=== PATIENT | female | born 1975 | race Hispanic/Latino ===

== ENCOUNTER 2018-01-08 15:41 | Emergency (ER) | payer BC ==
[2018-01-08] MEDS ORDERED: IPRATROPIUM/ALBUTEROL SULFATE 3 ML SOLUTION IH ONE (16:48)
[2018-01-08 16:59] LABS: BASOPHILS % (AUTO) 0.9 % (0.0-5.0); EOSINOPHILS % (AUTO) 6.3 % (0.0-8.0); HEMATOCRIT 35.3 % (36-48); LYMPHOCYTES % (AUTO) 23.1 % (21.0-51.0); MEAN CORPUSCULAR HEMOGLOBIN 25.8 pg (27.0-33.0); MEAN CORPUSCULAR HGB CONC 33.8 g/dL (32.0-36.0); MEAN CORPUSCULAR VOLUME 76.5 fL (79-99); MONOCYTES % (AUTO) 7.2 % (3.0-13.0); NEUTROPHILS % (AUTO) 62.5 % (40.0-77.0); PLATELET COUNT (AUTO) 395 K/uL (130-400); RED BLOOD CELL COUNT(AUTO) 4.62 MIL/uL (4.00-5.50); RED CELL DISTRIBUTION WIDTH 16.2 % (11.0-15.5); WHITE BLOOD COUNT (AUTO) 11.8 K/uL (4.8-10.8)
[2018-01-08 17:00] LABS: APPEARANCE,URINE Clear (CLEAR); BILIRUBIN,URINE Negative (NEGATIVE); COLOR,URINE Yellow (YELLOW); GLUCOSE, URINE (UA) Negative (NEGATIVE); KETONES,URINE Negative (NEGATIVE); LEUKOCYTE ESTERASE ,URINE Negative (NEGATIVE); NITRATE,URINE Negative (NEGATIVE); OCCULT BLOOD,URINE Negative (NEGATIVE); PROTEIN,URINE Negative (NEGATIVE); UROBILINOGEN,URINE 0.2 mg/dL (0.2-1.0)
[2018-01-08 17:03] LABS: HCG,QUAL RESULT NEGATIVE (NEGATIVE)
[2018-01-08 17:15] LABS: CREATININE 0.7 mg/dL (0.5-1.5); POTASSIUM 3.7 mmol/L (3.5-5.1)
[2018-01-08 17:20] LABS: ALBUMIN 3.6 g/dL (3.5-5.0); BILIRUBIN,TOTAL 0.3 mg/dL (0.2-1.0); TOTAL PROTEIN, SERUM 8.1 g/dL (6.0-8.3)
== END 2018-01-08 18:03 | disposition home or self-care (01) ==
LOC: EDH 15:41
DX: J09.X2 Influenza due to identified novel influenza A virus with other respiratory manifestations (principal); M06.9 Rheumatoid arthritis, unspecified
CPT/HCPCS: 36415; 71046; 80053; 81003; 81025; 85025; 87040; 87804; 94640

== ENCOUNTER 2018-10-24 02:52 | Emergency (ER) | payer BC ==
[2018-10-24] MEDS ORDERED: SODIUM CHLORIDE 0.9% 1000ML 1,000 ML IV ONE (03:21)
[2018-10-24 03:43] LABS: EOSINOPHILS % (AUTO) 6.8 % (0.0-8.0); LYMPHOCYTES % (AUTO) 17.1 % (21.0-51.0); MEAN CORPUSCULAR HEMOGLOBIN 25.7 pg (27.0-33.0); MEAN CORPUSCULAR HGB CONC 32.6 g/dL (32.0-36.0); MEAN CORPUSCULAR VOLUME 78.9 fL (79-99); MONOCYTES % (AUTO) 9.3 % (3.0-13.0); NEUTROPHILS % (AUTO) 65.8 % (40.0-77.0); NUCLEATED RED BLOOD CELLS 0.2 % (0.0-0.19); PLATELET COUNT (AUTO) 295 K/uL (130-400); RED BLOOD CELL COUNT(AUTO) 4.94 MIL/uL (4.00-5.50); WHITE BLOOD COUNT (AUTO) 8.4 K/uL (4.8-10.8)
[2018-10-24 03:47] LABS: CREATININE 0.7 mg/dL (0.5-1.5); POTASSIUM 3.7 mmol/L (3.5-5.1)
[2018-10-24 03:52] LABS: ALBUMIN 3.6 g/dL (3.5-5.0); BILIRUBIN,TOTAL 0.3 mg/dL (0.2-1.0); TOTAL PROTEIN, SERUM 7.6 g/dL (6.0-8.3)
[2018-10-24 04:10] LABS: APPEARANCE,URINE Clear (CLEAR); BILIRUBIN,URINE Negative (NEGATIVE); COLOR,URINE Yellow (YELLOW); GLUCOSE, URINE (UA) Negative (NEGATIVE); KETONES,URINE 40 mg/dL (NEGATIVE); LEUKOCYTE ESTERASE ,URINE Negative (NEGATIVE); NITRATE,URINE Negative (NEGATIVE); OCCULT BLOOD,URINE Negative (NEGATIVE); PH,URINE 7.5 (5.0-8.0); PROTEIN,URINE Negative (NEGATIVE)
== END 2018-10-24 04:35 | disposition home or self-care (01) ==
LOC: EDH 02:52
DX: R55 Syncope and collapse (principal); M06.9 Rheumatoid arthritis, unspecified; Z88.8 Allergy status to other drugs, medicaments and biological substances
CPT/HCPCS: 36415; 80053; 81003; 83690; 84484; 85025; 93005; 96360; 99285; J7030

== ENCOUNTER 2019-10-04 07:06 | Day surgery (SDC) | payer BC ==
[2019-10-01 17:10] VITALS: BP 149/83
[2019-10-01 17:10] LABS: BASOPHILS % (AUTO) 0.7 % (0.0-5.0); EOSINOPHILS % (AUTO) 3.3 % (0.0-8.0); HEMATOCRIT 36.7 % (36-48); LYMPHOCYTES % (AUTO) 24.8 % (21.0-51.0); MEAN CORPUSCULAR HEMOGLOBIN 20.8 pg (27.0-33.0); MEAN CORPUSCULAR HGB CONC 28.9 g/dL (32.0-36.0); NEUTROPHILS % (AUTO) 64.6 % (40.0-77.0); PLATELET COUNT (AUTO) 453 K/uL (130-400); RED CELL DISTRIBUTION WIDTH 18.9 % (11.0-15.5); WHITE BLOOD COUNT (AUTO) 10.3 K/uL (4.8-10.8)
[~2019-10-04] VITALS: Ht 156.2 cm; Wt 91.4 kg
[2019-10-04] VITALS (11 sets, daily range): BP systolic 119–145; BP diastolic 56–89
[~2019-10-04 07:06] MED LIST: ALBU8.5H8 IH; ALBUTEROL NEBULIZER IH; HYDR200T82 PO; ZYRTEC D PO
[2019-10-04] MEDS ORDERED: LACTATED RINGERS 1000ML 1,000 ML IV ONE (07:09)
[2019-10-04] MEDS ORDERED: CEFAZOLIN SODIUM 1 GM VIAL ONE (07:10)
[2019-10-04] MEDS ORDERED: LACTATED RINGERS 1000ML 1,000 ML IV SCH (07:15)
[2019-10-04] MEDS ORDERED: CALDOLOR 800MG+NS 250ML 250 ML IV SCH (07:15)
[2019-10-04] MEDS: CEFAZOLIN SODIUM 1 GM VIAL IVP SCH ×2 (07:15→08:40)
[2019-10-04] MEDS ORDERED: SUCCINYLCHOLINE 200MG/10ML SYR ONE (07:57)
[2019-10-04] MEDS ORDERED: MIDAZOLAM HCL 1 MG/ML 2ML VIAL ONE (07:57)
[2019-10-04] MEDS ORDERED: LIDOCAINE PF 2% 5ML ABBOJECT ONE (07:57)
[2019-10-04] MEDS ORDERED: GLYCOPYRROLATE 1 MG/5 ML SYRINGE ONE (07:57)
[2019-10-04] MEDS ORDERED: ONDANSETRON HCL 4 MG/2 ML VIAL ONE ×2 (07:57→09:28)
[2019-10-04] MEDS ORDERED: DEXAMETHASONE SOD PHOSPHATE 10MG/ML 1ML VIAL ONE (07:57)
[2019-10-04] MEDS ORDERED: ROCURONIUM 10MG/1ML SYR 10 MG/ML ML ONE (07:58)
[2019-10-04] MEDS ORDERED: PROPOFOL 10 MG/ML 20ML VIAL IV ONE (07:58)
[2019-10-04] MEDS ORDERED: FENTANYL CITRATE PF 50 MCG/1 ML 2ML VIAL ONE ×2 (07:58→08:41)
[2019-10-04] MEDS ORDERED: NEOSTIGMINE 5MG/5ML SYR IV ONE (07:58)
[2019-10-04] MEDS ORDERED: LIDOCAINE HCL 4% LTA SOL 4 ML VIAL ONE (08:47)
[2019-10-04] MEDS ORDERED: MEPERIDINE-PF 25 MG/ML SYG ONE ×2 (09:15→09:25)
[2019-10-04] MEDS ORDERED: METOCLOPRAMIDE 10 MG/2 ML VIAL ONE (09:28)
== END 2019-10-04 10:30 | disposition home or self-care (01) ==
LOC: DAH 07:06
PROVIDERS: ATTEND Obstetrics & Gynecology
DX: N92.0 Excessive and frequent menstruation with regular cycle (principal); M06.9 Rheumatoid arthritis, unspecified; J45.909 Unspecified asthma, uncomplicated; E66.9 Obesity, unspecified
CPT/HCPCS: 36415; 58563; 84703; 85025; 86850; 86900; 86901; 88305; A4215; A4221; A4222; A4223; A4351; A4355; A4663; A6260; J0330; J0690; J1100; J1741; J2001; J2175 ×2; J2250; J2405 ×2; J2704; J2710; J2765; J3010 ×2; J3490; J7030 ×2; J7120

== ENCOUNTER 2021-11-20 15:19 | Emergency (ER) | payer BC ==
[~2021-11-20] VITALS: Ht 157.5 cm; Wt 90.7 kg
[2021-11-20 15:53] LABS: MEAN CORPUSCULAR HEMOGLOBIN 24.4 pg (27.0-33.0); MEAN CORPUSCULAR HGB CONC 31.2 g/dL (32.0-36.0); MEAN CORPUSCULAR VOLUME 78.2 fL (79-99); RED BLOOD CELL COUNT(AUTO) 5.37 MIL/uL (4.00-5.50); RED CELL DISTRIBUTION WIDTH 15.1 % (11.0-15.5); WHITE BLOOD COUNT (AUTO) 5.9 K/uL (4.8-10.8)
[2021-11-20 15:54] LABS: BASOPHILS % (AUTO) 0.3 % (0.0-5.0); EOSINOPHILS % (AUTO) 2.4 % (0.0-8.0); LYMPHOCYTES % (AUTO) 28.5 % (21.0-51.0); MONOCYTES % (AUTO) 9.8 % (3.0-13.0); NEUTROPHILS % (AUTO) 58.3 % (40.0-77.0); PLATELET COUNT (AUTO) 360 K/uL (130-400)
[2021-11-20 16:01] LABS: CREATININE 0.6 mg/dL (0.5-1.5); POTASSIUM 3.4 mmol/L (3.5-5.1)
[2021-11-20 16:06] LABS: ALBUMIN 3.7 g/dL (3.5-5.0); BILIRUBIN,TOTAL 0.3 mg/dL (0.2-1.0)
[2021-11-20] MEDS ORDERED: ALBUTEROL INHALER 90MCG/INH IH PRN (17:30)
[2021-11-20] MEDS ORDERED: DEXAMETHASONE 4 MG TAB PO SCH (17:30)
[2021-11-20] MEDS ORDERED: ACETAMINOPHEN WITH CODEINE 1 TAB TAB PO ONE (17:30)
[2021-11-20 17:34] VITALS: BP 128/77
[2021-11-20] MEDS ORDERED: HYDR-3421 PO (17:44)
[2021-11-20] MEDS ORDERED: NIRM1TAB PO (17:44)
[2021-11-20] MEDS ORDERED: D-ME1POW16 PO (17:44)
[2021-11-20] MEDS ORDERED: PRED20TA3 PO (17:44)
[2021-11-29] MEDS ORDERED: FLUT1BLS IH (10:49)
[2021-11-29] MEDS ORDERED: TIOT4MIS2 IH (10:49)
[2021-11-29] MEDS ORDERED: BUDE0.5A3 IH (10:49)
[2021-11-29] MEDS ORDERED: IPRA3AMP24 IH (10:49)
[2021-11-29] MEDS ORDERED: PRED20TA3 PO (10:49)
[2021-11-29] MEDS ORDERED: MONT-39 PO (11:29)
[2021-11-29] MEDS ORDERED: CETI10TA57 PO (11:29)
== END 2021-11-20 18:12 | disposition home or self-care (01) ==
LOC: EDH 15:19
DX: U07.1 COVID-19 (principal); J06.9 Acute upper respiratory infection, unspecified; J45.909 Unspecified asthma, uncomplicated; M19.90 Unspecified osteoarthritis, unspecified site; Z79.52 Long term (current) use of systemic steroids; E66.9 Obesity, unspecified; Z68.36 Body mass index [BMI] 36.0-36.9, adult
CPT/HCPCS: 36415; 71045; 80053; 85025; 96372; 99283; J8540

== ENCOUNTER → 2022-04-21 | Outpatient (CLI) | payer BC ==
[~2022-04-21] MED LIST changes: -ALBU8.5H8 IH; -ALBUTEROL NEBULIZER IH; +BUDE0.5A3 IH; +CETI10TA57 PO; +FLUT1BLS IH; +IPRA3AMP24 IH; +MONT-39 PO; +PRED20TA3 PO; +TIOT4MIS2 IH; -ZYRTEC D PO
== END | disposition home or self-care (01) ==
LOC: SHCH 11:21
PROVIDERS: ATTEND Internal Medicine Cardiovascular Disease
DX: R00.2 Palpitations (principal); I10 Essential (primary) hypertension; E66.01 Morbid (severe) obesity due to excess calories; J45.909 Unspecified asthma, uncomplicated; I87.2 Venous insufficiency (chronic) (peripheral); M06.9 Rheumatoid arthritis, unspecified
CPT/HCPCS: 93306

== ENCOUNTER → 2022-05-18 | Outpatient (CLI) | payer BC | END | disposition home or self-care (01) | LOC: SHCH 09:52 | PROVIDERS: ATTEND Internal Medicine Cardiovascular Disease | DX: I87.2 Venous insufficiency (chronic) (peripheral) (principal) | CPT/HCPCS: 93970 ==

== ENCOUNTER 2023-01-22 23:16 | Emergency (ER) | payer BC ==
[~2023-01-22] VITALS: Ht 157.5 cm; Wt 90.7 kg
[2023-01-22 23:53] LABS: BASOPHILS % (AUTO) 0.7 % (0.0-5.0); EOSINOPHILS % (AUTO) 5.5 % (0.0-8.0); HEMATOCRIT 39.4 % (36-48); LYMPHOCYTES % (AUTO) 26.6 % (21.0-51.0); MEAN CORPUSCULAR HEMOGLOBIN 24.7 pg (27.0-33.0); MEAN CORPUSCULAR HGB CONC 31.7 g/dL (32.0-36.0); MEAN CORPUSCULAR VOLUME 77.7 fL (79-99); MONOCYTES % (AUTO) 6.3 % (3.0-13.0); NEUTROPHILS % (AUTO) 60.2 % (40.0-77.0); PLATELET COUNT (AUTO) 402 K/uL (130-400); RED BLOOD CELL COUNT(AUTO) 5.07 MIL/uL (4.00-5.50); RED CELL DISTRIBUTION WIDTH 15.6 % (11.0-15.5); WHITE BLOOD COUNT (AUTO) 10.4 K/uL (4.8-10.8)
[2023-01-23 00:10] LABS: APPEARANCE,URINE CLEAR (CLEAR); BILIRUBIN,URINE NEGATIVE (NEGATIVE); COLOR,URINE LIGHT-YELLOW (YELLOW); GLUCOSE, URINE (UA) NEGATIVE (NEGATIVE); KETONES,URINE NEGATIVE (NEGATIVE); LEUKOCYTE ESTERASE ,URINE NEGATIVE Leu/uL (NEGATIVE); NITRATE,URINE NEGATIVE (NEGATIVE); OCCULT BLOOD,URINE NEGATIVE (NEGATIVE); PH,URINE 6.5 (5.0-8.0); PROTEIN,URINE NEGATIVE (NEGATIVE); UROBILINOGEN,URINE 0.2 mg/dL (0.2-1.0)
[2023-01-23 00:12] LABS: CREATININE 0.8 mg/dL (0.5-1.5); POTASSIUM 3.9 mmol/L (3.5-5.1)
[2023-01-23 00:17] LABS: ALBUMIN 3.8 g/dL (3.5-5.0); TOTAL PROTEIN, SERUM 7.9 g/dL (6.0-8.3)
[2023-01-23] MEDS ORDERED: HYOS-14 PO (06:13)
[2023-01-23 06:45] VITALS: BP 158/79
== END 2023-01-23 07:06 | disposition home or self-care (01) ==
LOC: EDH 23:16
DX: R10.30 Lower abdominal pain, unspecified (principal); J45.909 Unspecified asthma, uncomplicated; M19.90 Unspecified osteoarthritis, unspecified site; Z79.899 Other long term (current) drug therapy; Z88.8 Allergy status to other drugs, medicaments and biological substances
CPT/HCPCS: 36415; 74176; 80053; 81003; 81025; 82550; 83690; 84484; 85025; 93005

== ENCOUNTER 2023-05-18 19:19 | Emergency (ER) | payer BC ==
[~2023-05-18] VITALS: Ht 157.5 cm; Wt 83.0 kg
[~2023-05-18 19:19] MED LIST changes: +HYOS-14 PO
[2023-05-18 19:39] VITALS: BP 146/87; PULSE 91; RESP 18
== END 2023-05-18 22:46 | disposition home or self-care (01) ==
LOC: EDH 19:19
DX: R42 Dizziness and giddiness (principal); I10 Essential (primary) hypertension; M06.9 Rheumatoid arthritis, unspecified; Z88.8 Allergy status to other drugs, medicaments and biological substances; Z79.899 Other long term (current) drug therapy

== ENCOUNTER 2024-07-26 21:11 | Emergency (ER) | payer BC ==
[~2024-07-26] VITALS: Ht 157.5 cm; Wt 77.1 kg
[~2024-07-26 21:11] MED LIST changes: +IBUP-2077 PO
[2024-07-26 21:47] LABS: BASOPHILS # (AUTO) 0.06 K/uL (0.00-0.20); BASOPHILS % (AUTO) 0.5 % (0.0-5.0); EOSINOPHILS # (AUTO) 0.24 K/uL (0.00-0.70); EOSINOPHILS % (AUTO) 1.9 % (0.0-8.0); HEMATOCRIT 35.3 % (36-48); IMMATURE GRANULOCYTE ABSOLUTE 0.09 K/uL (0-1); LYMPHOCYTES # (AUTO) 2.1 K/uL (1.0-4.8); LYMPHOCYTES % (AUTO) 16.4 % (21.0-51.0); MEAN CORPUSCULAR HEMOGLOBIN 25.7 pg (27.0-33.0); MEAN CORPUSCULAR VOLUME 80.4 fL (79-99); MONOCYTES # (AUTO) 0.9 K/uL (0.1-1.0); MONOCYTES % (AUTO) 6.9 % (3.0-13.0); NEUTROPHILS # (AUTO) 9.2 K/uL (1.8-7.7); NEUTROPHILS % (AUTO) 73.6 % (40.0-77.0); PLATELET COUNT (AUTO) 453 K/uL (130-400); RED BLOOD CELL COUNT(AUTO) 4.39 MIL/uL (4.00-5.50); RED CELL DISTRIBUTION WIDTH 14.6 % (11.0-15.5); WHITE BLOOD COUNT (AUTO) 12.5 K/uL (4.8-10.8)
[2024-07-26 21:57] LABS: CREATININE 0.7 mg/dL (0.5-1.0); POTASSIUM 3.7 mmol/L (3.5-5.1)
[2024-07-26 22:23] LABS: APPEARANCE,URINE CLOUDY (CLEAR); BILIRUBIN,URINE NEGATIVE (NEGATIVE); COLOR,URINE COLORLESS (YELLOW); GLUCOSE, URINE (UA) NEGATIVE (NEGATIVE); KETONES,URINE NEGATIVE (NEGATIVE); LEUKOCYTE ESTERASE ,URINE 250 Leu/uL (NEGATIVE); NITRATE,URINE NEGATIVE (NEGATIVE); OCCULT BLOOD,URINE NEGATIVE (NEGATIVE); PH,URINE 5.5 (5.0-8.0); PROTEIN,URINE NEGATIVE (NEGATIVE); UROBILINOGEN,URINE 0.2 mg/dL (0.2-1.0)
[2024-07-26 22:26] LABS: ADD UA MICROSCOPIC YES
[2024-07-26 22:40] LABS: AMPHET/METH SCREEN,URINE NEGATIVE (NEGATIVE); BARBITURATE SCREEN, URINE NEGATIVE (NEGATIVE); BENZODIAZEPINES SCREEN,URINE NEGATIVE (NEGATIVE); CANNABINOID SCREEN,URINE NEGATIVE (NEGATIVE); COCAINE SCREEN,URINE NEGATIVE (NEGATIVE); OPIATE SCREEN,URINE NEGATIVE (NEGATIVE); PHENCYCLIDINE SCREEN,URINE NEGATIVE (NEGATIVE)
[2024-07-26 22:43] LABS: BACTERIA,URINE RARE /HPF (None Seen); MUCUS,URINE RARE LPF (None Seen); SQUAMOUS EPITHELIAL CELL,UR MOD /HPF (0-2)
[2024-07-26 22:56] VITALS: BP 130/66; PULSE 96; RESP 18; TEMP 98.5; O2SAT 97
== END 2024-07-26 22:57 | disposition home or self-care (01) ==
LOC: EDH 21:11
DX: R42 Dizziness and giddiness (principal); I10 Essential (primary) hypertension; F41.9 Anxiety disorder, unspecified; J45.909 Unspecified asthma, uncomplicated; G62.9 Polyneuropathy, unspecified; M06.9 Rheumatoid arthritis, unspecified; Z79.899 Other long term (current) drug therapy
CPT/HCPCS: 36415; 70450; 80048; 80305; 81001; 84484; 85025; 87086

== ENCOUNTER 2024-09-28 21:14 | Emergency (ER) | payer BC ==
[~2024-09-28] VITALS: Ht 157.5 cm; Wt 77.1 kg
[2024-09-28 21:27] VITALS: TEMP 98.1
--- NOTE | 2024-09-28 21:30 | ERN ---
ED Note History of Present Illness Stated Complaint: HTN, NAUSEA, HEADACHE Chief Complaint: Hypertension Time Seen by MD: 21:21 Dictation: This is a 48-year-old female who presented to the emergency room with complaints of nausea and headache and she also reports her blood pressure was high and hence she came in for evaluation she had similar presentation in the past at which time she was very anxious about possibly getting a stroke with a high blood pressure and hence had presented to the ED at that time. No history of any blurred vision diplopia motor weakness or seizure activity no slurred speech . Temperature 97.9 pulse 103 respirations 16 blood pressure 171/98 with a pulse oximetry of 97% Chronic medical problems include hypertension, rheumatoid arthritis, neuropathy of unclear etiology, anxiety and asthma Allergies: Coded Allergies: certolizumab pegol (Unverified Allergy, Unknown, 07/08/19) Home Meds Active Scripts Ibuprofen (Ibuprofen 800 mg Tab) 800 Mg Tab, 800 MG PO Q8H PRN for fever or pain, #30 TAB 0 Refills Prov:SELAM GARZA 06/25/24 Hyoscyamine Sulfate (Hyoscyamine Sulfate) 0.125 Mg Tab.rapdis, 0.125 MG PO TID PRN for PAIN, #30 TAB 0 Refills Prov:BECKIE MCDANIEL MD 01/23/23 Montelukast Sodium (Montelukast Sodium) 10 Mg Tablet, 10 MG PO DAILY for 30 Days, #30 TAB 1 Refill Prov:GARY HERNÁNDEZ Jr., MD 11/29/21 Cetirizine HCl (Cetirizine HCl) 10 Mg Tablet, 10 MG PO HS for 30 Days, #30 TAB 3 Refills Prov:GARY HERNÁNDEZ Jr., MD 11/29/21 Prednisone (Prednisone) 20 Mg Tablet, 40 MG PO DAILY, #5 TAB take 1st then taper to 20mg dose Prov:KAEL NAYLOR 11/29/21 Prednisone (Prednisone) 20 Mg Tablet, 20 MG PO DAILY for 5 Days, #5 TAB Prov:KAEL NAYLOR 11/29/21 Fluticasone/Vilanterol (Breo Ellipta 200-25 Mcg INH) 1 Each Blst.w.dev, 1 EACH IH DAILY for start when starting spiriva for 30 Days, #1 INHALER Prov:KAEL NAYLORORION 11/29/21 Tiotropium [place] (Spiriva Respimat) 4 Gm Mist.inhal, 4 GM IH DAILY for 30 Days, #1 INHALER start 2 inhalations once daily regimen after 7 days more of nebulizer therapy Prov:KAEL NAYLORORION 11/29/21 Budesonide (Budesonide) 0.5 Mg/2 Ml Ampul.neb, 0.5 MG IH BID for 15 Days, #30 AMP Prov:KAEL NAYLORORION 11/29/21 Ipratropium/Albuterol Sulfate (Iprat-Albut 0.5-3(2.5) mg/3 ml) 3 Ml Ampul.neb, 3 ML IH Q6HPRN PRN for SHORTNESS OF BREATH for 15 Days, #60 AMP Prov:KAEL NAYLORIrma 11/29/21 Reported Medications Hydroxychloroquine Sulfate (Plaquenil) 200 Mg Tablet, 200 MG PO HS, TAB 10/01/19 Past Medical History Past Medical History: Anxiety, Asthma, Hypertension Additional Past Medical Hx: RA, NEUROPATHY, " DIZZINESS" DENIES PMH OF VERTIGO, PANIC ATTACKS Surgical History: Other Surgical History Other: UTERINE ABLASION Family History: Negative History: Not Applicable RN Note Reviewed/Agreed w/PFSH: Yes Review of System Dictation Constitutional: Negative for fever,chills, and weight loss Eyes: Negative for injury, pain,redness, and discharge ENT: Negative for injury,pain or swelling Cardiovascular: Negative for chest pain, palpitations, and edema Respiratory: Negative for shortness of breath, cough, and wheezing, Abdomen/GI: Negative for abdominal pain, nausea, vomiting, diarrhea, and constipation Back: Negative for injury and pain : Negative for injury, bleeding and discharge MS/Extremity: Negative for injury and deformity Skin: Negative for rash, and discoloration Neuro: Positive for headache, denies weakness, numbness, tingling, and seizure Psych: Negative for suicide ideation, homicidal ideation, and hallucinations Initial Vital Sign VS Vital Signs Date Time Temp Pulse Resp B/P (MAP) Pulse Ox O2 Delivery O2 Flow Rate FiO2 09/28/24 21:15 97.9 103 16 171/98 97 Room Air 09/28/24 21:27 0 21 Physical Exam Dictation General: awake, alert, NAD Head/Face: Normocephalic, atraumatic Eyes: PERRL, EOMI, vision at baseline ENT: oral cavity clear, TMs clear, no signs of infection Neck: Trachea midline, supple, no nuchal rigidity Cardiovascular: RRR, normal S1/S2, No MRGs, no JVD Respiratory: CTAB, no respiratory distress, No rales or wheezes Abdomen: Soft, non-tender, non-distended, normal bowel sounds, no guarding or rebound. Skin: Warm, dry, normal turgor, no rash MS/Extremity: Pulses equal, no cyanosis, neurovascular intact, FROM Neuro: COAx4, GCS 15, strength 5/5, CN 2-12 intact, normal cerebellar exam, normal gait, Psych: Normal behavior, mood, and affect normal Extremities-trace edema without any palpable cords, Homans sign is negative Results (Laboratory/Radiology) Laboratory/Radiology Laboratory Tests Test 09/28/24 21:35 White Blood Count 7.5 K/uL (4.8-10.8) Red Blood Count 4.49 MIL/uL (4.00-5.50) Hemoglobin 11.0 g/dL (12.0-16.0) L Hematocrit 35.3 % (36-48) L Mean Corpuscular Volume 78.6 fL (79-99) L Mean Corpuscular Hemoglobin 24.5 pg (27.0-33.0) L Mean Corpuscular Hemoglobin Concent 31.2 g/dL (32.0-36.0) L Red Cell Distribution Width 14.7 % (11.0-15.5) Platelet Count 527 K/uL (130-400) H Mean Platelet Volume 8.8 fL (7.5-10.5) Immature Granulocyte % (Auto) 0.4 % (0-1) Neutrophils (%) (Auto) 59.3 % (40.0-77.0) Lymphocytes (%) (Auto) 28.9 % (21.0-51.0) Monocytes (%) (Auto) 7.8 % (3.0-13.0) Eosinophils (%) (Auto) 2.7 % (0.0-8.0) Basophils (%) (Auto) 0.9 % (0.0-5.0) Neutrophils # (Auto) 4.4 K/uL (1.8-7.7) Lymphocytes # (Auto) 2.2 K/uL (1.0-4.8) Monocytes # (Auto) 0.6 K/uL (0.1-1.0) Eosinophils # (Auto) 0.20 K/uL (0.00-0.70) Basophils # (Auto) 0.07 K/uL (0.00-0.20) Absolute Immature Granulocyte (auto 0.03 K/uL (0-1) Nucleated Red Blood Cells 0.0 % (0.0-0.19) Red Blood Cell Morphology See comments Sodium Level 138 mmol/L (136-145) Potassium Level 3.8 mmol/L (3.5-5.1) Chloride Level 104 mmol/L (101-111) Carbon Dioxide Level 29 mmol/L (21-32) Blood Urea Nitrogen 9 mg/dL (7-18) Creatinine 0.6 mg/dL (0.5-1.0) Glomerular Filtration Rate Calc 110 mL/min (>90) Random Glucose 93 mg/dL (70-105) Total Calcium 9.9 mg/dL (8.5-10.1) Total Bilirubin 0.2 mg/dL (0.2-1.0) Aspartate Amino Transf (AST/SGOT) 14 U/L (10-37) Alanine Aminotransferase (ALT/SGPT) 16 U/L (12-78) Alkaline Phosphatase 97 U/L (50-136) Total Protein 7.8 g/dL (6.0-8.3) Albumin 3.1 g/dL (3.5-5.0) L Labs Reviewed?: Yes ED Course ED Course Orders Procedure Category Date Status Time Hydralazine 20mg Inj PHA 09/28/24 Complete (Apresoline 20mg In 21:30 Lorazepam 0.5 Mg PHA 09/28/24 Complete (Ativan) 21:30 Cbc With Differential LAB 09/28/24 Complete 21:31 Comprehensive LAB 09/28/24 Complete Metabolic Panel 21:31 Ondansetron Odt 4mg PHA 09/28/24 Complete Tab (Zofran 4mg Odt) 22:00 Current Medications Medications (Trade) Dose Ordered Sig/Anne Route PRN Reason Start Time Stop Time Status Last Admin Dose Admin Hydralazine HCl (APRESOLine 20MG INJ) 10 mg ONCE ONCE IM 09/28/24 21:30 09/28/24 21:33 DC Lorazepam (AtiVAN) 0.25 mg ONCE ONCE PO 09/28/24 21:30 09/28/24 21:33 DC 09/28/24 21:37 Ondansetron HCl (zoFRAN 4MG ODT) 4 mg ONCE ONCE SL 09/28/24 22:00 09/28/24 22:01 DC 09/28/24 21:36 Vital Signs Date Time Temp Pulse Resp B/P (MAP) Pulse Ox O2 Delivery O2 Flow Rate FiO2 09/28/24 22:06 81 16 137/65 97 Room Air* 0 21 09/28/24 21:27 98.1 88 16 157/82 99 Room Air* 0 21 09/28/24 21:15 97.9 103 16 171/98 97 Room Air We will perform diagnostic labs, advanced imaging and administer medications according to the patient's complaint. Once the results are available, will review and personally interpreted the labs to rule out any acute life- threatening emergency the trach require immediate intervention and treatment. I will then re-evaluate the patient after treatment and diagnostic exams have return to determine whether the patient requires any further testing, can safely be discharged home or need further admission to hospital for additional treatment and evaluation. Medical Decision Making MDM MDM: Differential diagnosis: Rationale: Tests considered and ordered secondary to shared decision making include: Previous outside records reviewed: Old ER visits. Risk of complication and/or morbidity or mortality of patient management: None Medications-Per medication reconciliation Need for hospitalization: Patient does not meet criteria for hospitalization. Need for emergency major/minor surgery: No There are no social concerns with this patient. Prescription drug management Prescriptions will include symptomatic care Patient's prior external medical records from other ER visits were reviewed by me as indicated. Prior testing and results from previous visits were reviewed. Prior tests were taken into account with medical decision making and resource utilization, independent historian/historians were used to obtain complete medical history. I independently interpreted the test that were performed, results were reviewed by me and considered findings on radiology if ordered. Medical management and examination interpretation discussions were had by me with other qualified healthcare professionals as indicated for the patient's care. Problem List Problem List: (1) Uncontrolled hypertension (2) Anxiety DX & DISP Disposition: Discharge Departure Impression: Primary Impression: Uncontrolled hypertension Additional Impression: Anxiety Condition: Stable Additional Instructions: Patient and the caregiver have been informed of all the diagnostic tests and the imaging conducted during the today's visit to the emergency room and has verbalized understanding of the results I have personally reviewed and interpreted all diagnostic exams performed here in the ER today as well as the vital signs documented by the nursing staff. The patient is now being discharged to home and should follow up with the primary care physician or the specialist as directed by the ER staff. Follow-up with primary care provider in 1 to 2 days. Take medications as directed here in the emergency room. Okay to continue home medications unless otherwise discussed during your visit in the emergency room today. Return to your nearest emergency room if symptoms worsen or if there is no improvement. Call 911 if you need immediate assistance. Take Tylenol or Motrin [id number] as needed and if no contraindications are present. Increase oral hydration. A wound culture or urine culture was ordered here in the emergency room department please follow-up with primary care provider and advise them to get repeat ports from our facility. If you had any Vj wrap/splints that were applied here, please do not remove them until you see your primary care or specialty. Extensive counseling on compliance with medications, low-salt diet and follow up with PCP Referrals: GWYN ROGEL MD (PCP) HENRIQUE BARRIOS MD Sep 28, 2024 21:30
[2024-09-28] MEDS: ondanSETRON ODT 4MG TAB SL ONE (21:36)
[2024-09-28] MEDS: LORazepam 0.5 MG TABLET PO ONE (21:37)
[2024-09-28 21:43] LABS: BASOPHILS # (AUTO) 0.07 K/uL (0.00-0.20); BASOPHILS % (AUTO) 0.9 % (0.0-5.0); EOSINOPHILS % (AUTO) 2.7 % (0.0-8.0); HEMATOCRIT 35.3 % (36-48); IMMATURE GRANULOCYTE ABSOLUTE 0.03 K/uL (0-1); LYMPHOCYTES # (AUTO) 2.2 K/uL (1.0-4.8); LYMPHOCYTES % (AUTO) 28.9 % (21.0-51.0); MEAN CORPUSCULAR HEMOGLOBIN 24.5 pg (27.0-33.0); MEAN CORPUSCULAR HGB CONC 31.2 g/dL (32.0-36.0); MEAN CORPUSCULAR VOLUME 78.6 fL (79-99); MONOCYTES # (AUTO) 0.6 K/uL (0.1-1.0); MONOCYTES % (AUTO) 7.8 % (3.0-13.0); NEUTROPHILS # (AUTO) 4.4 K/uL (1.8-7.7); NEUTROPHILS % (AUTO) 59.3 % (40.0-77.0); PLATELET COUNT (AUTO) 527 K/uL (130-400); RED BLOOD CELL COUNT(AUTO) 4.49 MIL/uL (4.00-5.50); RED CELL DISTRIBUTION WIDTH 14.7 % (11.0-15.5); WHITE BLOOD COUNT (AUTO) 7.5 K/uL (4.8-10.8)
[2024-09-28 21:59] LABS: CREATININE 0.6 mg/dL (0.5-1.0); POTASSIUM 3.8 mmol/L (3.5-5.1)
[2024-09-28 22:04] LABS: ALBUMIN 3.1 g/dL (3.5-5.0); BILIRUBIN,TOTAL 0.2 mg/dL (0.2-1.0); TOTAL PROTEIN, SERUM 7.8 g/dL (6.0-8.3)
[2024-09-28 22:06] VITALS: BP 137/65; PULSE 81; RESP 16; O2SAT 97
[2024-09-28] MEDS: hydrALAZine 20MG/ML VIAL IM ONE (22:07)
== END 2024-09-28 23:06 | disposition home or self-care (01) ==
LOC: EDH 21:14
DX: I10 Essential (primary) hypertension (principal); F41.9 Anxiety disorder, unspecified; J45.909 Unspecified asthma, uncomplicated; Z79.51 Long term (current) use of inhaled steroids; Z79.52 Long term (current) use of systemic steroids; Z79.899 Other long term (current) drug therapy; Z88.8 Allergy status to other drugs, medicaments and biological substances; Z98.890 Other specified postprocedural states
CPT/HCPCS: 36415; 80053; 85025; 99283

== ENCOUNTER 2024-12-14 23:17 | Emergency (ER) | payer BC ==
[~2024-12-14] VITALS: Ht 157.5 cm; Wt 77.1 kg
--- NOTE | 2024-12-14 23:26 | NUR ---
REPORT TO [facility]
[2024-12-15 00:08] LABS: APPEARANCE,URINE CLEAR (CLEAR); BILIRUBIN,URINE NEGATIVE (NEGATIVE); COLOR,URINE YELLOW (YELLOW); GLUCOSE, URINE (UA) NEGATIVE (NEGATIVE); KETONES,URINE NEGATIVE (NEGATIVE); LEUKOCYTE ESTERASE ,URINE NEGATIVE Leu/uL (NEGATIVE); NITRATE,URINE NEGATIVE (NEGATIVE); OCCULT BLOOD,URINE NEGATIVE (NEGATIVE); PH,URINE 6.5 (5.0-8.0); PROTEIN,URINE NEGATIVE (NEGATIVE); UROBILINOGEN,URINE 0.2 mg/dL (0.2-1.0)
[2024-12-15 00:09] LABS: ADD UA MICROSCOPIC NO
[2024-12-15 00:46] LABS: CARBON DIOXIDE 30 mmol/L (21-32); CHLORIDE 102 mmol/L (101-111); CREATININE 0.6 mg/dL (0.5-1.0); GLOMERULAR FILTR. RATE CALC 109 mL/min (>90); GLUCOSE,RANDOM 110 mg/dL (70-105); POTASSIUM 4.5 mmol/L (3.5-5.1); SODIUM SERUM 138 mmol/L (136-145); UREA NITROGEN, BLOOD 15 mg/dL (7-18)
[2024-12-15 00:48] LABS: BASOPHILS # (AUTO) 0.06 K/uL (0.00-0.20); BASOPHILS % (AUTO) 0.6 % (0.0-5.0); EOSINOPHILS # (AUTO) 0.11 K/uL (0.00-0.70); HEMATOCRIT 37.3 % (36-48); IMMATURE GRANULOCYTE ABSOLUTE 0.06 K/uL (0-1); LYMPHOCYTES # (AUTO) 2.7 K/uL (1.0-4.8); MEAN CORPUSCULAR HEMOGLOBIN 23.5 pg (27.0-33.0); MEAN CORPUSCULAR HGB CONC 30.6 g/dL (32.0-36.0); MEAN CORPUSCULAR VOLUME 76.9 fL (79-99); MONOCYTES # (AUTO) 0.6 K/uL (0.1-1.0); MONOCYTES % (AUTO) 5.6 % (3.0-13.0); NEUTROPHILS # (AUTO) 7.2 K/uL (1.8-7.7); NEUTROPHILS % (AUTO) 67.2 % (40.0-77.0); PLATELET COUNT (AUTO) 593 K/uL (130-400); RED BLOOD CELL COUNT(AUTO) 4.85 MIL/uL (4.00-5.50); RED CELL DISTRIBUTION WIDTH 16.5 % (11.0-15.5); WHITE BLOOD COUNT (AUTO) 10.7 K/uL (4.8-10.8)
[2024-12-15 00:53] LABS: ALANINE AMINOTRANSFERASE 18 U/L (12-78); ALBUMIN 3.5 g/dL (3.5-5.0); ASPARTATE AMINOTRANSFERASE 23 U/L (10-37); BILIRUBIN,TOTAL 0.3 mg/dL (0.2-1.0); CREATINE KINASE, TOTAL 50 U/L (21-232); TOTAL PROTEIN, SERUM 8.3 g/dL (6.0-8.3)
--- NOTE | 2024-12-15 01:05 | ERN ---
General Chief Complaint: Multiple Complaints Stated Complaint: HYPERTENSION Time Seen by MD: 23:27 Source: patient History of Present Illness Initial Comments Patient was a 49-year-old female with prior history of hypertension and vertigo. Prior to coming to the emergency room today she experienced a sudden spike in her blood pressure and it caused what sounds like an anxiety attack where she was started experiencing pressure throbbing he independent of her neck he has been homeless tingling around her right mouth with emesis x1 and mild chest pressure. She took a single dose of clonidine 0.1 mg which brought her systolic from 195 down to 180 and her diastolic from 100 down to 90. She says that she was taking an antibiotic for a UTI right now. Timing/Duration: 1 hour Severity: severe Modifying Factors: improves with medication Associated Symptoms: chest pain, headaches, nausea/vomiting Allergies: Coded Allergies: certolizumab pegol (Unverified Allergy, Unknown, 07/08/19) Home Meds Active Scripts Ibuprofen (Ibuprofen 800 mg Tab) 800 Mg Tab, 800 MG PO Q8H PRN for fever or pain, #30 TAB 0 Refills Prov:SELAM GARZA 06/25/24 Hyoscyamine Sulfate (Hyoscyamine Sulfate) 0.125 Mg Tab.rapdis, 0.125 MG PO TID PRN for PAIN, #30 TAB 0 Refills Prov:BECKIE MCDANIEL MD 01/23/23 Montelukast Sodium (Montelukast Sodium) 10 Mg Tablet, 10 MG PO DAILY for 30 Days, #30 TAB 1 Refill Prov:GARY HERNÁNDEZ Jr., MD 11/29/21 Cetirizine HCl (Cetirizine HCl) 10 Mg Tablet, 10 MG PO HS for 30 Days, #30 TAB 3 Refills Prov:GARY HERNÁNDEZ Jr., MD 11/29/21 Prednisone (Prednisone) 20 Mg Tablet, 40 MG PO DAILY, #5 TAB take 1st then taper to 20mg dose Prov:KAEL NAYLOR 11/29/21 Prednisone (Prednisone) 20 Mg Tablet, 20 MG PO DAILY for 5 Days, #5 TAB Prov:KAEL NAYLOR 11/29/21 Fluticasone/Vilanterol (Breo Ellipta 200-25 Mcg INH) 1 Each Blst.w.dev, 1 EACH IH DAILY for start when starting spiriva for 30 Days, #1 INHALER Prov:KAEL NAYLORTICOP 11/29/21 Tiotropium [place] (Spiriva Respimat) 4 Gm Mist.inhal, 4 GM IH DAILY for 30 Days, #1 INHALER start 2 inhalations once daily regimen after 7 days more of nebulizer therapy Prov:KAEL NAYLORTICOP 11/29/21 Budesonide (Budesonide) 0.5 Mg/2 Ml Ampul.neb, 0.5 MG IH BID for 15 Days, #30 AMP Prov:KAEL NAYLORTICOP 11/29/21 Ipratropium/Albuterol Sulfate (Iprat-Albut 0.5-3(2.5) mg/3 ml) 3 Ml Ampul.neb, 3 ML IH Q6HPRN PRN for SHORTNESS OF BREATH for 15 Days, #60 AMP Prov:KAEL NAYLORORION 11/29/21 Reported Medications Hydroxychloroquine Sulfate (Plaquenil) 200 Mg Tablet, 200 MG PO HS, TAB 10/01/19 Past Medical History Past Medical History: Anxiety, Asthma, Hypertension Medical History Other: RA, NEUROPATHY, " DIZZINESS" DENIES PMH OF VERTIGO, PANIC ATTACKS Past Surgical History: Other Surgical History Other: UTERINE ABLASION Family History Family History: Negative Female( History) History: Not Applicable Gastrointestinal/Abdominal: (+) nausea, (+) vomiting Musculoskeletal: (+) Neck pain Neuro: (+) vertigo Physical Exam Physical Exam Dictation The patient's blood pressure has dropped down to 164 systolic. She was much calmer laughing and smiling. And has no complaints of vertigo or neck pain. Orientation: (+) oriented x 3 Head/Face Trauma: No Eye: bilateral eye normal inspection, bilateral eye PERRL, bilateral eye EOMI Ear, Nose, Throat: (+) hearing grossly normal, (+) normal ENT inspection, (+) moist mucous membraine Neck: (+) normal inspection, (+) supple, (+) no JVD Respiratory: (+) chest non-tender, (+) lungs clear, (+) well ventilated Heart: (+) regular Vascular: (+) no edema, (+) normal peripheral pulse, (+) no JVD Gastrointestinal: (+) soft, (+) non-tender, (+) bowel sound present Skin: (+) normal color, (+) warm/dry Results Laboratory and Microbiology Lab and Micro Result Laboratory Tests Test 12/14/24 23:23 12/15/24 00:23 12/15/24 00:59 Urine Color YELLOW (YELLOW) Urine Appearance CLEAR (CLEAR) Urine pH 6.5 (5.0-8.0) Urine Specific [place] 1.004 (1.001-1.031) Urine Protein NEGATIVE mg/dL (NEGATIVE) Urine Glucose (UA) NEGATIVE mg/dL (NEGATIVE) Urine Ketones NEGATIVE mg/dL (NEGATIVE) Urine Occult Blood NEGATIVE (NEGATIVE) Urine Nitrate NEGATIVE (NEGATIVE) Urine Bilirubin NEGATIVE mg/dL (NEGATIVE) Urine Urobilinogen 0.2 mg/dL (0.2-1.0) Urine Leukocyte Esterase NEGATIVE [place]/uL White Blood Count 10.7 K/uL (4.8-10.8) Red Blood Count 4.85 MIL/uL (4.00-5.50) Hemoglobin 11.4 g/dL (12.0-16.0) L Hematocrit 37.3 % (36-48) Mean Corpuscular Volume 76.9 fL (79-99) L Mean Corpuscular Hemoglobin 23.5 pg (27.0-33.0) L Mean Corpuscular Hemoglobin Concent 30.6 g/dL (32.0-36.0) L Red Cell Distribution Width 16.5 % (11.0-15.5) H Platelet Count 593 K/uL (130-400) H Mean Platelet Volume 9.4 fL (7.5-10.5) Immature Granulocyte % (Auto) 0.6 % (0-1) Neutrophils (%) (Auto) 67.2 % (40.0-77.0) Lymphocytes (%) (Auto) 25.0 % (21.0-51.0) Monocytes (%) (Auto) 5.6 % (3.0-13.0) Eosinophils (%) (Auto) 1.0 % (0.0-8.0) Basophils (%) (Auto) 0.6 % (0.0-5.0) Neutrophils # (Auto) 7.2 K/uL (1.8-7.7) Lymphocytes # (Auto) 2.7 K/uL (1.0-4.8) Monocytes # (Auto) 0.6 K/uL (0.1-1.0) Eosinophils # (Auto) 0.11 K/uL (0.00-0.70) Basophils # (Auto) 0.06 K/uL (0.00-0.20) Absolute Immature Granulocyte (auto 0.06 K/uL (0-1) Nucleated Red Blood Cells 0.0 % (0.0-0.19) Red Blood Cell Morphology See comments D-Dimer Quantitative (PE/DVT) 3786 ng/mL (0-500) *H Sodium Level 138 mmol/L (136-145) Potassium Level 4.5 mmol/L (3.5-5.1) Chloride Level 102 mmol/L (101-111) Carbon Dioxide Level 30 mmol/L (21-32) Blood Urea Nitrogen 15 mg/dL (7-18) Creatinine 0.6 mg/dL (0.5-1.0) Glomerular Filtration Rate Calc 109 mL/min (>90) Random Glucose 110 mg/dL (70-105) H Total Calcium 9.8 mg/dL (8.5-10.1) Total Bilirubin 0.3 mg/dL (0.2-1.0) Aspartate Amino Transf (AST/SGOT) 23 U/L (10-37) Alanine Aminotransferase (ALT/SGPT) 18 U/L (12-78) Alkaline Phosphatase 120 U/L (50-136) Total Creatine Kinase 50 U/L (21-232) # Troponin I < 0.05 ng/mL (0.00-0.05) < 0.05 ng/mL (0.00-0.05) Troponin I High Sensitivity < 4.0 ng/L (4-50) L B-Type Natriuretic Peptide 20 pg/mL (0-100) Total Protein 8.3 g/dL (6.0-8.3) Albumin 3.5 g/dL (3.5-5.0) MDM The patient symptoms sound to me like hyperventilation syndrome being brought on by anxiety from hypertension. The patient's overall condition has improved m arkedly with the lowering of her blood pressure. She was not anxious. Given her systolic of 160 however I will give her an additional 0.1 mg of p.o. clonidine before sending her home. We also ordered a BNP as well as cardiac enzymes. Date cardiac enzymes are normal the BNP is pending. I suspect the BNP will also be normal I will double check before discharging her from the [facility] room once her blood pressure is normal. Patient's blood pressure has normalized to 120 systolic she feels fine and is re melissa for discharge. Patient states she has a history of elevated D-dimers NIH obtained one today and she still has elevated D-dimers, this is a chronic condition for her and her elevated D-dimer is no reason to keep her in the emergency room or to admit her. I am not going to wait for the BNP result. ED Course Orders Procedure Category Date Status Time Vital Signs Per CPOE 12/14/24 Transmitted Routine 23:23 B-Type Natriuretic LAB 12/14/24 Complete Peptide 23:23 Chest 1vw RAD 12/14/24 Taken 23:23 12 Lead Ekg Tracing- EKG 12/14/24 Logged Technical 23:23 Oxygen By Nc/Pulse Ox CPOE 12/14/24 Transmitted 23:23 Maintain Iv CPOE 12/14/24 Transmitted 23:23 Iv Insertion CPOE 12/14/24 Transmitted 23:23 Cardiac Monitoring CPOE 12/14/24 Transmitted 23:23 Pulse Oximetry With CPOE 12/14/24 Transmitted Vs And Prn 23:23 Cbc With Differential LAB 12/14/24 Complete 23:23 Activity: Br W/Brp CPOE 12/14/24 Transmitted With Assist 23:23 Urinalysis Profile LAB 12/14/24 Complete 23:23 Troponin Poc Order LAB 12/14/24 Complete Only 23:23 Bedside Troponin-I LAB.ER 12/14/24 In Process (Poc) 23:23 D-Dimer LAB 12/14/24 Complete 23:40 Cardiac Panel LAB 12/15/24 Complete 00:23 Comprehensive LAB 12/15/24 Complete Metabolic Panel 00:23 Clonidine Hcl 0.1 Mg PHA 12/15/24 Complete Tablet (Catapres 0. 01:00 Current Medications Medications (Trade) Dose Ordered Sig/Anne Route PRN Reason Start Time Stop Time Status Last Admin Dose Admin Clonidine HCl (CATApres 0.1 mg TAB) 0.1 mg ONCE ONCE PO 12/15/24 01:00 12/15/24 01:01 DC 12/15/24 01:13 Vital Signs Date Time Temp Pulse Resp B/P (MAP) Pulse Ox O2 Delivery O2 Flow Rate FiO2 12/15/24 01:13 80 162/85 12/15/24 00:26 99.0 96 20 167/85 98 Room Air* 0 21 12/14/24 23:19 98.1 107 20 180/96 99 DX & DISP Disposition: Discharge Departure Impression: Primary Impression: Anxiety Additional Impression: Hyperventilation syndrome Condition: Stable Referrals: GWYN ROGEL MD (PCP) LANA BRUNER MD Dec 15, 2024 01:05
[2024-12-15 01:07] LABS: B-TYPE NATRIURETIC PEPTIDE 20 pg/mL (0-100)
[2024-12-15] MEDS: cloNIDine HCL 0.1 MG TABLET PO ONE (01:13)
[2024-12-15 02:21] VITALS: BP 121/61; PULSE 82; RESP 20; TEMP 98.7; O2SAT 99
--- NOTE | 2024-12-15 04:13 | EKG ---
[facility] Test Date: 2024-12-14 Test Time: 23:56:11 Pat Name: LISA HUFFMAN Department: ED Room: Gender: F Line Decorator: [facility] : 1975 Requested By: LANA BRUNER Order Number: [id number] Reading MD: Lorraine Walton Measurements Intervals [place] Rate: 89 P: 46 [place]: 143 QRS: 39 QRSD: 89 T: 10 QT: 365 QTc: 445 Interpretive Statements Sinus rhythm Compared to ECG 06/25/2024 18:07:12 Sinus tachycardia no longer present Electronically Signed On 12-15-2024 15:37:50 [employer] by Lorraine Walton Please click the below link to view image of tracing.
--- NOTE | 2024-12-15 08:14 | HMCIMG ---
PORTABLE CHEST RADIOGRAPH INDICATION: CHEST PAIN COMPARISON: 11/28/2021 FINDINGS: Heart size is normal. The pulmonary vascularity and amol appear normal. No abnormal pulmonary parenchymal opacity or consolidation identified. No significant pleural effusion noted. No pneumothorax detected. IMPRESSION: No radiographic evidence for any acute cardiopulmonary process.
== END 2024-12-15 02:44 | disposition home or self-care (01) ==
LOC: EDH 23:17
DX: F41.9 Anxiety disorder, unspecified (principal); F45.8 Other somatoform disorders; I10 Essential (primary) hypertension; J45.909 Unspecified asthma, uncomplicated; Z79.51 Long term (current) use of inhaled steroids; Z79.52 Long term (current) use of systemic steroids; Z79.899 Other long term (current) drug therapy
CPT/HCPCS: 36415; 71045; 80053; 81003; 82550; 83880; 84484; 85025; 85378; 93005; 99284

== ENCOUNTER 2025-07-31 09:51 | Emergency (ER) | payer BC ==
[~2025-07-31] VITALS: Ht 157.5 cm; Wt 77.1 kg
[~2025-07-31 09:51] MED LIST changes: +HYD25 PO
--- NOTE | 2025-07-31 10:56 | ERN ---
General Chief Complaint: Dizzy/Light Headed Stated Complaint: DIZZINESS Time Seen by MD: 09:52 Source: patient History of Present Illness Initial Comments Patient is a 49-year-old female coming in complaining of dizziness. 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 Patient is here for further evaluation. Allergies: Coded Allergies: certolizumab pegol (Unverified Allergy, Unknown, 07/08/19) Home Meds Active Scripts Hydroxyzine HCl (Atarax) 25 Mg Tab, 1 CAP PO TID for anxiety for 10 Days, #30 CAP 0 Refills Prov:JESI CONNELLY MD 04/25/25 Ibuprofen (Ibuprofen 800 mg Tab) 800 Mg Tab, 800 MG PO Q8H PRN for fever or pain, #30 TAB 0 Refills Prov:SELAM GARZA I PAC 06/25/24 Hyoscyamine Sulfate (Hyoscyamine Sulfate) 0.125 Mg Tab.rapdis, 0.125 MG PO TID PRN for PAIN, #30 TAB 0 Refills Prov:BECKIE MCDANIEL MD 01/23/23 Montelukast Sodium (Montelukast Sodium) 10 Mg Tablet, 10 MG PO DAILY for 30 Days, #30 TAB 1 Refill Prov:GARY HERNÁNDEZ Jr., MD 11/29/21 Cetirizine HCl (Cetirizine HCl) 10 Mg Tablet, 10 MG PO HS for 30 Days, #30 TAB 3 Refills Prov:GARY HERNÁNDEZ Jr., MD 11/29/21 Prednisone (Prednisone) 20 Mg Tablet, 40 MG PO DAILY, #5 TAB take 1st then taper to 20mg dose Prov:KAEL NAYLOR AGACNP 11/29/21 Prednisone (Prednisone) 20 Mg Tablet, 20 MG PO DAILY for 5 Days, #5 TAB Prov:KAEL NAYLOR AGACNP 11/29/21 Fluticasone/Vilanterol (Breo Ellipta 200-25 Mcg INH) 1 Each Blst.w.dev, 1 EACH IH DAILY for start when starting spiriva for 30 Days, #1 INHALER Prov:KAEL NAYLOR AGACNP 11/29/21 Tiotropium [place] (Spiriva Respimat) 4 Gm Mist.inhal, 4 GM IH DAILY for 30 Days, #1 INHALER start 2 inhalations once daily regimen after 7 days more of nebulizer therapy Prov:KAEL NAYLOR AGAP 11/29/21 Budesonide (Budesonide) 0.5 Mg/2 Ml Ampul.neb, 0.5 MG IH BID for 15 Days, #30 AMP Prov:KAEL NAYLOR AGAP 11/29/21 Ipratropium/Albuterol Sulfate (Iprat-Albut 0.5-3(2.5) mg/3 ml) 3 Ml Ampul.neb, 3 ML IH Q6HPRN PRN for SHORTNESS OF BREATH for 15 Days, #60 AMP Prov:KAEL NAYLOR AGAP 11/29/21 Reported Medications Hydroxychloroquine Sulfate (Plaquenil) 200 Mg Tablet, 200 MG PO HS, TAB 10/01/19 Past Medical History Past Medical History: Anxiety, Arthritis, Hypertension, Other Medical History Other: VERTIGO Past Surgical History: None Surgical History Other: UTERINE ABLASION Family History Family History: Negative Female( History) History: Not Applicable ROS Dictation CONSTITUTIONAL: No chills, no fever, no weakness, no diaphoresis, no malaise. HEAD/FACE: No signs of trauma. EENT: No eye pain, no blurred vision, no tearing, no double vision, no ear pain, no ear discharge, no nose pain, no nasal congestion, no throat pain, no throat swelling, no mouth pain. RESPIRATORY: No cough, no orthopnea, no SOB, no stridor, no wheezing. CARDIOVASCULAR: No chest pain, no edema, no palpitations, no syncope. GASTROINTESTINAL/ABDOMINAL: No abdominal pain, no constipation, no diarrhea, no nausea, no vomiting. GENITOURINARY: No abnormal discharge, no dysuria, no frequent urination, no hematuria. No complaints of pain in the genitals. MUSCULOSKELETAL: No back pain, no gout, no joint pain, no joint swelling, no muscle pain, no muscle stiffness, no neck pain. INTEGUMENTARY: No change in color, no change in hair/nails, no dryness, no lesion, no lumps, no rash. NEUROLOGICAL/PSYCH: No anxiety, not depressed, no emotional problem, no headache, no numbness, no pre-existing deficit, no history of seizures, no tremors, no weakness. HEMATOLOGIC/LYMPHATIC: Not anemic, no history of blood clots, no apparent bleeding, no bruising, glands not swollen. All Systems Negative, Except as Noted. Physical Exam Physical Exam Dictation VITAL SIGNS: Reviewed. GENERAL APPEARANCE: Alert, oriented x3, no acute distress, obese. HEAD AND FACE: Non-traumatic. EYES: PERRL, pink conjunctivas, eyelid no trauma, anterior chamber clear. EARS: Pinnas intact and no signs of trauma or erythema. Ear canals clear and no discharge. TMs erythema. NOSE: No discharge, no bleeding. Nasal turbinate swelling bilateral OROPHARYNX: Mouth normal, teeth no caries, tongue pink. Pharynx erythema. Tonsils no exudates, no abscesses noted. Mucous membrane moist. NECK: Supple, non-tender, no thyromegaly, no masses, no JVD, no bruits. BREAST: Deferred. CHEST: No tenderness, no crepitus, no paradoxical movement, no retractions. LUNGS: Clear, well-ventilated, symmetric, no rales, no wheezing, no rhonchi, no stridor, good breath sounds bilaterally. HEART: Regular rate, regular rhythm, no murmur, no gallops. VASCULAR: No peripheral edema. ABDOMEN: Soft, positive bowel sounds, nondistended, no guarding, nontender, no rebound, no masses no hepatomegaly, no splenomegaly, no Erazo's sign, no hernias. RECTAL: Deferred. GENITAL: Deferred. NEUROLOGICAL: Normal speech, gross motor function intact, gross sensory function intact. MUSCULOSKELETAL: Neck nontender, full range of motion, back nontender, full range of motion. EXTREMITIES: Nontender, full range of motion. SKIN: Color pink, dry, no turgor, no rash, no lacerations, no abrasions, no contusions. LYMPHATICS: Deferred. Results Laboratory and Microbiology Lab and Micro Result Laboratory Tests Test 07/31/25 10:28 07/31/25 11:04 Urine Color COLORLESS (YELLOW) Urine Appearance CLEAR (CLEAR) Urine pH 7.0 (5.0-8.0) Urine Specific [place] 1.006 (1.001-1.031) Urine Protein NEGATIVE mg/dL (NEGATIVE) Urine Glucose (UA) NEGATIVE mg/dL (NEGATIVE) Urine Ketones NEGATIVE mg/dL (NEGATIVE) Urine Occult Blood NEGATIVE (NEGATIVE) Urine Nitrate NEGATIVE (NEGATIVE) Urine Bilirubin NEGATIVE mg/dL (NEGATIVE) Urine Urobilinogen 0.2 mg/dL (0.2-1.0) Urine Leukocyte Esterase NEGATIVE [place]/uL Urine Opiates Screen NEGATIVE (NEGATIVE) Urine Barbiturates Screen NEGATIVE (NEGATIVE) Urine Phencyclidine Screen NEGATIVE (NEGATIVE) Urine Amphetamines Screen NEGATIVE (NEGATIVE) Urine Benzodiazepines Screen NEGATIVE (NEGATIVE) Urine Cocaine Screen NEGATIVE (NEGATIVE) Urine Marijuana (THC) Screen NEGATIVE (NEGATIVE) White Blood Count 9.9 K/uL (4.8-10.8) Red Blood Count 4.20 MIL/uL (4.00-5.50) Hemoglobin 10.6 g/dL (12.0-16.0) L Hematocrit 34.0 % (36-48) L Mean Corpuscular Volume 81.0 fL (79-99) Mean Corpuscular Hemoglobin 25.2 pg (27.0-33.0) L Mean Corpuscular Hemoglobin Concent 31.2 g/dL (32.0-36.0) L Red Cell Distribution Width 16.5 % (11.0-15.5) H Platelet Count 477 K/uL (130-400) H Mean Platelet Volume 9.0 fL (7.5-10.5) Immature Granulocyte % (Auto) 0.4 % (0-1) Neutrophils (%) (Auto) 74.6 % (40.0-77.0) Lymphocytes (%) (Auto) 15.8 % (21.0-51.0) L Monocytes (%) (Auto) 6.8 % (3.0-13.0) Eosinophils (%) (Auto) 1.7 % (0.0-8.0) Basophils (%) (Auto) 0.7 % (0.0-5.0) Neutrophils # (Auto) 7.4 K/uL (1.8-7.7) Lymphocytes # (Auto) 1.6 K/uL (1.0-4.8) Monocytes # (Auto) 0.7 K/uL (0.1-1.0) Eosinophils # (Auto) 0.17 K/uL (0.00-0.70) Basophils # (Auto) 0.07 K/uL (0.00-0.20) Absolute Immature Granulocyte (auto 0.04 K/uL (0-1) Nucleated Red Blood Cells 0.0 % (0.0-0.19) Sodium Level 140 mmol/L (136-145) Potassium Level 3.8 mmol/L (3.5-5.1) Chloride Level 106 mmol/L (101-111) Carbon Dioxide Level 24 mmol/L (21-32) Blood Urea Nitrogen 8 mg/dL (7-18) Creatinine 0.5 mg/dL (0.5-1.0) Glomerular Filtration Rate Calc 114 mL/min (>90) Random Glucose 120 mg/dL (70-105) H Total Calcium 9.2 mg/dL (8.5-10.1) Magnesium Level 2.10 mg/dL (1.80-2.40) Total Creatine Kinase 40 U/L (21-232) # Troponin I High Sensitivity < 4 ng/L (4-50) L Labs Reviewed?: Yes EKG/XRAY/US/CT/MRI EKG Comment [id number] time 10:14 a.m. Ventricular rate 118 Sinus tachycardia [place] [address] wave elevation or depression MDM MDM: Differential diagnosis: Sinusitis, vertigo, tension headache, Rationale: Tests considered and ordered secondary to shared decision making include: Previous outside records reviewed: Old ER visits. Risk of complication and/or morbidity or mortality of patient management: None Medications-Per medication reconciliation Need for hospitalization: Patient does not meet criteria for hospitalization. Need for emergency major/minor surgery: No Patient is a 49-year-old female coming in complaining of vertigo for four years. On physical exam nasal turbinate swelling oropharyngeal erythema. Spoke to patient's provider who was following up on patient in the ER our plan is to get an MRI of the sinuses as outpatient. Patient will be discharged in stable condition patient will be receiving Decadron as well. ED Course Orders Procedure Category Date Status Time 12 Lead Ekg Tracing- EKG 07/31/25 Complete Technical 10:05 Diazepam 5 Mg/Ml 2 Ml PHA 07/31/25 In Process Syg (Valium 5 Mg/M 10:30 Meclizine Hcl 25 Mg PHA 07/31/25 Complete (Antivert 25 Mg) 10:30 Meclizine Hcl 25 Mg PHA 07/31/25 Complete (Antivert 25 Mg) 10:13 Cbc With Differential LAB 07/31/25 Complete 10:45 Chest 1vw RAD 07/31/25 Resulted 10:45 0.9%Nacl 1000ml (Ns PHA 07/31/25 Complete 1000ml) 11:00 Magnesium LAB 07/31/25 Complete 10:45 Creatine Kinase, Total LAB 07/31/25 Complete 10:45 Troponin I High LAB 07/31/25 Complete Sensitivity 10:45 Urinalysis Profile LAB 07/31/25 Complete 10:45 Basic Metabolic Panel LAB 07/31/25 Complete 10:45 Drug Screen Urine LAB 07/31/25 Complete 10:45 Current Medications Medications (Trade) Dose Ordered Sig/Anne Route PRN Reason Start Time Stop Time Status Last Admin Dose Admin Diazepam (VALium 5 MG/ML 2 ML SYG) 5 mg ONCE PRN IV ANXIETY 07/31/25 10:30 08/07/25 10:29 Meclizine HCl (ANTIvert 25 mg) 25 mg ONCE ONCE PO 07/31/25 10:30 07/31/25 10:31 DC 07/31/25 10:16 Meclizine HCl (ANTIvert 25 mg) 25 mg STK-MED ONCE .ROUTE 07/31/25 10:13 07/31/25 10:13 DC Sodium Chloride 1,000 ml @ 0 mls/hr ONCE ONCE IV 07/31/25 11:00 07/31/25 11:01 DC 07/31/25 11:30 Vital Signs Date Time Temp Pulse Resp B/P (MAP) Pulse Ox O2 Delivery O2 Flow Rate FiO2 07/31/25 12:23 117 20 127/87 99 Room Air* 0 21 07/31/25 11:35 98.2 110 20 144/79 98 Room Air* 0 21 07/31/25 10:02 98.1 120 18 154/82 98 Room Air 0 DX & DISP Disposition: Discharge Departure Impression: Primary Impression: Sinusitis Additional Impression: Tension headache Condition: Stable Scripts Amoxicillin/Potassium Clav (Amox Tr-K Clv 875-125 mg Tab) 875 Mg-125 Mg Tablet 1 TAB PO BID for 10 Days, #20 TAB 0 Refills Prov: ADAM FRANCIS MD 07/31/25 Fluticasone Propionate (Flonase Nasal [place]) 50 Mcg/Actuation [place] 2 SPRAY NS DAILY, #16 GM 0 Refills Prov: ADAM FRANCIS MD 07/31/25 Additional Instructions: FOLLOW-UP WITH PRIMARY CARE PROVIDER IN 1 TO 2 DAYS. TAKE MEDICATIONS DIRECTED HERE IN THE EMERGENCY ROOM. OKAY TO CONTINUE HOME MEDICATIONS UNLESS OTHERWISE DISCUSSED DURING YOUR VISIT IN THE EMERGENCY ROOM TODAY. RETURN TO YOUR NEAREST EMERGENCY ROOM IF SYMPTOMS WORSEN OR IF THERE IS NO IMPROVEMENT. CALL 911 IF YOU NEED IMMEDIATE ASSISTANCE. TAKE TYLENOL [id number] NEEDED AND IF NO CONTRAINDICATIONS ARE PRESENT. INCREASE ORAL HYDRATION. A WOUND CULTURE OR URINE CULTURE WAS ORDERED HERE IN THE EMERGENCY ROOM DEPARTMENT PLEASE FOLLOW-UP WITH PRIMARY CARE PROVIDER AND ADVISE THEM TO GET REPORTS FROM OUR FACILITY. IF YOU HAD ANY TRAVIS WRAP/SPLINTS THAT WERE APPLIED HERE, PLEASE DO NOT REMOVE THEM UNTIL YOU SEE YOUR PRIMARY CARE OR SPECIALTY. Referrals: Referrals: GWYN ROGEL MD (PCP) ISAAC GAYLE MD Time of Disposition: 13:17 ADAM FRANCIS MD Jul 31, 2025 10:56
[2025-07-31 11:11] LABS: IMMATURE GRANULOCYTE ABSOLUTE 0.04 K/uL (0-1); NUCLEATED RED BLOOD CELLS 0.0 % (0.0-0.19); PLATELET COUNT (AUTO) 477 K/uL (130-400); RED BLOOD CELL COUNT(AUTO) 4.20 MIL/uL (4.00-5.50); RED CELL DISTRIBUTION WIDTH 16.5 % (11.0-15.5); WHITE BLOOD COUNT (AUTO) 9.9 K/uL (4.8-10.8)
[2025-07-31 11:21] LABS: CREATININE 0.5 mg/dL (0.5-1.0); GLOMERULAR FILTR. RATE CALC 114.0 mL/min (>90); GLUCOSE,RANDOM 120.0 mg/dL (70-105); SODIUM SERUM 140.0 mmol/L (136-145); UREA NITROGEN, BLOOD 8.0 mg/dL (7-18)
[2025-07-31 11:26] LABS: CREATINE KINASE, TOTAL 40.0 U/L (21-232)
[2025-07-31] MEDS: 0.9%NACL 1000ML 1,000 ML IV ONE (11:30)
[2025-07-31 11:38] LABS: APPEARANCE,URINE CLEAR (CLEAR); GLUCOSE, URINE (UA) NEGATIVE (NEGATIVE); LEUKOCYTE ESTERASE ,URINE NEGATIVE Leu/uL (NEGATIVE); NITRATE,URINE NEGATIVE (NEGATIVE); OCCULT BLOOD,URINE NEGATIVE (NEGATIVE)
[2025-07-31 11:40] LABS: ADD UA MICROSCOPIC NO
[2025-07-31 11:46] LABS: AMPHET/METH SCREEN,URINE NEGATIVE (NEGATIVE); BARBITURATE SCREEN, URINE NEGATIVE (NEGATIVE); CANNABINOID SCREEN,URINE NEGATIVE (NEGATIVE); COCAINE SCREEN,URINE NEGATIVE (NEGATIVE)
--- NOTE | 2025-07-31 12:32 | HMCIMG ---
EXAM: CR Chest, 2 View. CLINICAL HISTORY: vertigo COMPARISON: 04/25 FINDINGS: LUNGS: The lungs show no infiltrate or other acute finding. PLEURAL SPACES: No evidence of pleural effusion or pneumothorax. MEDIASTINUM: The cardiomediastinal silhouette is within normal limits. BONES: No acute osseous abnormality. IMPRESSION: 1. No acute cardiopulmonary findings. /[place]
--- NOTE | 2025-07-31 12:55 | EKG ---
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
[2025-07-31] MEDS ORDERED: AMOX1TAB16 PO (13:18)
[2025-07-31] MEDS ORDERED: FLUT16H NS (13:18)
[2025-07-31 13:33] VITALS: BP 122/82; PULSE 105; RESP 20; TEMP 98; O2SAT 98
== END 2025-07-31 14:10 | disposition home or self-care (01) ==
LOC: EDH 09:51
DX: J32.9 Chronic sinusitis, unspecified (principal); G44.209 Tension-type headache, unspecified, not intractable; F41.9 Anxiety disorder, unspecified; I10 Essential (primary) hypertension; Z79.899 Other long term (current) drug therapy; Z79.52 Long term (current) use of systemic steroids; Z79.51 Long term (current) use of inhaled steroids
CPT/HCPCS: 99284; 96374; 96361; 71045; 82550; 83735; 84484; 80048; 80305; 85025; 36415; 93005; 81003; J1100; J7030